=== PATIENT | female | born 1995 | race Native Hawaiian/Other Pacific Islander ===

== ENCOUNTER 2025-01-15 13:47 | Emergency (ER) | payer OTHER, SELFPAY ==
[2025-01-15] VITALS (9 sets, daily range): BP systolic 112–126; BP diastolic 65–77; PULSE 78–98; RESP 16; TEMP 36.4; O2SAT 95–100
--- NOTE | 2025-01-15 17:25 | ED.NAVMDI ---
HPI - Nausea/Vomiting/Diarrhea <Kayla Sosa PA-C - Last Filed: 01/15/25 19:31> General Chief complaint: Nausea/Vomiting/Diarrhea Stated complaint: 13 weeks Throwing up, headache Time Seen by Provider: 01/15/25 14:58 Source: patient Mode of arrival: Ambulatory History of Present Illness HPI Narrative: Ms. Cox is a pleasant 29-year-old female, currently 13 weeks who presents to the emergency department for nausea, vomiting, headache since last night. Patient states around 1:00 a.m. she started feeling nauseous and had a frontal forehead headache associated with vomiting whenever she tried to eat. She is not experiencing any abdominal pain. She actually feels much better now than she did last night. She called her OBGYN in [place] and they could not see her today and recommended she come to the ER. She has already had ultrasound and confirmed this . She denies any abdominal pain, diarrhea, constipation, dysuria, hematuria, vaginal discharge or vaginal bleeding. She denies fevers, chills. She is having normal bowel movements. Two prior pregnancies were vaginal, uncomplicated, and she has a 3-year-old and 1-year-old. Related Data Previous Rx's ?Medication ?Instructions ?Recorded promethazine 12.5 mg tablet 12.5 mg PO Q4-6H PRN nausea and 01/15/25 vomiting #20 tabs Allergies Allergy/AdvReac Type Severity Reaction Status Date / Time No Known Drug Allergies Allergy Verified 01/15/25 14:19 Review of Systems <Kayla Sosa PA-C - Last Filed: 01/15/25 19:31> Review of Systems ROS Unobtainable: All systems reviewed & are unremarkable except as noted in HPI and below Patient History <Kayla Sosa PA-C - Last Filed: 01/15/25 19:31> Social History Smoking Status: Never smoker Smoking Status: Never smoker Exam <Kayla Sosa PA-C - Last Filed: 01/15/25 19:31> Narrative Exam Narrative: GENERAL: 29 year old patient appears stated age. Well-developed patient, in no acute distress. HEAD: Atraumatic. Normocephalic. EYES: No scleral icterus. No injection or drainage. NECK: Trachea midline. Cervical ROM intact. CARDIOVASCULAR: Regular rate and rhythm. RESPIRATORY: ?Nonlabored respirations. ?Speaking in clear, full sentences. ?Clear to auscultation. Breath sounds equal bilaterally. No wheezes, rales, or rhonchi. ? GASTROINTESTINAL: Abdomen soft, non-tender, nondistended. BS present. EXTREMITIES: No LE edema. BACK: No CVA tenderness. NEURO: AOx3. ?Clear speech. ?Moves all 4 extremities appropriately. SKIN: No rash or erythema of visible areas Initial Vital Signs Initial Vital Signs: Vital Signs Temperature 97.6 F 01/15/25 14:19 Pulse Rate 88 01/15/25 14:19 Respiratory Rate 16 01/15/25 14:19 Blood Pressure 126/77 01/15/25 14:19 Pulse Oximetry 98 01/15/25 14:19 Oxygen Delivery Method Room Air 01/15/25 14:19 <Arline Painter DO - Last Filed: 01/25/25 07:41> Initial Vital Signs Initial Vital Signs: Vital Signs Temperature 97.6 F 01/15/25 14:19 Pulse Rate 88 01/15/25 14:19 Respiratory Rate 16 01/15/25 14:19 Blood Pressure 126/77 01/15/25 14:19 Pulse Oximetry 98 01/15/25 14:19 Oxygen Delivery Method Room Air 01/15/25 14:19 Course <Kayla Sosa PA-C - Last Filed: 01/15/25 19:31> Orders Ordered: Discontinued Medications Diphenhydramine HCl (Diphenhydramine 50 Mg/Ml Vial) 25 mg IV NOW ONE Stop: 01/15/25 14:59 Last Admin: 01/15/25 17:35 Dose: 25 mg Documented By: KODY Sodium Chloride (Normal Saline 0.9%) 1,000 mls @ 1,000 mls/hr IV BOLUS ONE Stop: 01/15/25 15:57 Last Infusion: 01/15/25 19:20 Dose: Infused Documented By: Admin: 01/15/25 17:34 Dose: 1,000 mls/hr Documented By: KODY Ceftriaxone Sodium 1,000 mg/ (Sodium Chloride) 100 mls @ 200 mls/hr IV NOW ONE Stop: 01/15/25 18:43 Last Infusion: 01/15/25 19:45 Dose: Infused Documented By: Admin: 01/15/25 19:14 Dose: 200 mls/hr Documented By: KODY Magnesium Oxide (Magnesium Oxide 400 Mg Tablet) 400 mg PO DAILY ONE Stop: 01/15/25 18:05 Last Admin: 01/15/25 18:20 Dose: 400 mg Documented By: JAY Metoclopramide HCl (Metoclopramide 10 Mg/2 Ml Inj) 5 mg IV NOW ONE Stop: 01/15/25 14:59 Last Admin: 01/15/25 17:35 Dose: 5 mg Documented By: KODY Metronidazole (Metronidazole 500 Mg Tablet) 500 mg PO NOW ONE Stop: 01/15/25 18:43 Last Admin: 01/15/25 19:15 Dose: 500 mg Documented By: KODY Ondansetron HCl (Ondansetron 4 Mg/2 Ml Inj) 4 mg IV NOW PRN PRN Reason: Nausea And Vomiting Ondansetron HCl (Ondansetron 4 Mg Odt) 4 mg PO NOW PRN PRN Reason: Nausea And Vomiting Vital Signs Vital signs: Vital Signs - 8 hr 01/15/25 14:19 01/15/25 15:59 01/15/25 15:59 Temperature 97.6 F Pulse Rate 88 81 Respiratory Rate 16 Blood Pressure 126/77 120/73 Pulse Oximetry 98 99 Oxygen Delivery Method Room Air 01/15/25 16:00 01/15/25 16:01 01/15/25 16:01 Temperature Pulse Rate 79 84 Respiratory Rate Blood Pressure 113/68 Pulse Oximetry 100 99 Oxygen Delivery Method 01/15/25 16:30 01/15/25 17:00 01/15/25 19:18 Temperature Pulse Rate 98 H 83 Respiratory Rate Blood Pressure Pulse Oximetry 98 100 95 Oxygen Delivery Method 01/15/25 19:20 01/15/25 19:20 Temperature Pulse Rate 83 Respiratory Rate Blood Pressure 115/65 Pulse Oximetry 99 Oxygen Delivery Method <Arline Painter DO - Last Filed: 01/25/25 07:41> Orders Ordered: Discontinued Medications Diphenhydramine HCl (Diphenhydramine 50 Mg/Ml Vial) 25 mg IV NOW ONE Stop: 01/15/25 14:59 Last Admin: 01/15/25 17:35 Dose: 25 mg Documented By: KODY Sodium Chloride (Normal Saline 0.9%) 1,000 mls @ 1,000 mls/hr IV BOLUS ONE Stop: 01/15/25 15:57 Last Infusion: 01/15/25 19:20 Dose: Infused Documented By: Admin: 01/15/25 17:34 Dose: 1,000 mls/hr Documented By: KODY Ceftriaxone Sodium 1,000 mg/ (Sodium Chloride) 100 mls @ 200 mls/hr IV NOW ONE Stop: 01/15/25 18:43 Last Infusion: 01/15/25 19:45 Dose: Infused Documented By: Admin: 01/15/25 19:14 Dose: 200 mls/hr Documented By: KODY Magnesium Oxide (Magnesium Oxide 400 Mg Tablet) 400 mg PO DAILY ONE Stop: 01/15/25 18:05 Last Admin: 01/15/25 18:20 Dose: 400 mg Documented By: JAY Metoclopramide HCl (Metoclopramide 10 Mg/2 Ml Inj) 5 mg IV NOW ONE Stop: 01/15/25 14:59 Last Admin: 01/15/25 17:35 Dose: 5 mg Documented By: KODY Metronidazole (Metronidazole 500 Mg Tablet) 500 mg PO NOW ONE Stop: 01/15/25 18:43 Last Admin: 01/15/25 19:15 Dose: 500 mg Documented By: KODY Ondansetron HCl (Ondansetron 4 Mg/2 Ml Inj) 4 mg IV NOW PRN PRN Reason: Nausea And Vomiting Ondansetron HCl (Ondansetron 4 Mg Odt) 4 mg PO NOW PRN PRN Reason: Nausea And Vomiting Vital Signs Vital signs: Vital Signs - 8 hr 01/15/25 14:19 01/15/25 15:59 01/15/25 15:59 Temperature 97.6 F Pulse Rate 88 81 Respiratory Rate 16 Blood Pressure 126/77 120/73 Pulse Oximetry 98 99 Oxygen Delivery Method Room Air 01/15/25 16:00 01/15/25 16:01 01/15/25 16:01 Temperature Pulse Rate 79 84 Respiratory Rate Blood Pressure 113/68 Pulse Oximetry 100 99 Oxygen Delivery Method 01/15/25 16:30 01/15/25 17:00 01/15/25 19:18 Temperature Pulse Rate 98 H 83 Respiratory Rate Blood Pressure Pulse Oximetry 98 100 95 Oxygen Delivery Method 01/15/25 19:20 01/15/25 19:20 Temperature Pulse Rate 83 Respiratory Rate Blood Pressure 115/65 Pulse Oximetry 99 Oxygen Delivery Method MDM - Nausea/Vomiting/Diarrhea <Kayla Sosa PA-C - Last Filed: 01/15/25 19:31> Medical Records Attestation: I reviewed the patient's medical records. Lab Data 01/15/25 17:28 01/15/25 17:28 Labs: Lab Results 01/15/25 01/15/25 Range/Units 17:28 18:00 WBC 13.2 H (4.5-11.0) X10^3/uL RBC 4.70 (4.0-5.2) X10^6/uL Hgb 13.5 (12.0-16.0) g/dL Hct 38.4 (36-46) % MCV 81.8 (80-100) fL MCH 28.7 (26-34) PG MCHC 35.0 (30-36) % RDW 12.9 (11.6-14.8) % Plt Count 337 (150-400) X10^3/uL Neut % (Auto) 82.8 H (50-75) % Lymph % (Auto) 12.6 L (25-40) % [place] % (Auto) 3.9 (3-14) % Eos % (Auto) 0.3 L (2-4) % Baso % (Auto) 0.4 (0-2) % Neut # (Auto) 75878 H (4578-4741) /uL Lymph # (Auto) 1700 (4012-2702) /uL [place] # (Auto) 500 (0-900) /uL Eos # (Auto) 0 (0-450) /uL Baso # (Auto) 100 (0-100) /uL Sodium 132 L (137-145) mmol/L Potassium 4.0 (3.4-5.1) mmol/L Chloride 102 (98-107) mmol/L Carbon Dioxide 22 (22-32) mmol/L BUN 9 (7-17) mg/dL Creatinine 0.58 (0.52-1.04) mg/dL Estimated GFR > 60 (>60) mL/min BUN/Creatinine Ratio 15.5 (6-22) Glucose 98 (70-99) mg/dL Calcium 9.4 (8.4-10.2) mg/dL Magnesium 1.4 L (1.6-2.3) mg/dL Total Bilirubin 0.4 (0.2-1.3) mg/dL AST 22 (14-36) IU/L ALT 16 (<35) IU/L Alkaline Phosphatase 56 (38-126) U/L Total Protein 8.3 H (6.3-8.2) g/dL Albumin 4.2 (3.5-5.0) g/dL Globulin 4.1 (1.7-4.1) g/dL Albumin/Globulin Ratio 1.0 (1.0-2.8) Lipase 212 (23-300) U/L Urine RBC 0-1/hpf (0-5/HPF) Urine WBC 1-5/hpf (0-5/HPF) Ur Squamous Epith Cells 5-10 /hpf H (0-5/HPF) Urine Bacteria Many (>30) H (None) Urine Mucus 1+ H (Negative) Urine Trichomonas 1-5/hpf H (None Seen) Urine Yeast 0-1/hpf (None) Ur Culture Indicated? Specimen cultured Vol Urine Centrifuged 10ml (spun) Point of Care Testing Test Results Positive Urine Dip Bedside Urine Glucose Negative Bedside Urine Bilirubin - Negative Bedside Urine Ketone +++ 80 Urine Specific [place] 1.020 Bedside Urine Occult Blood +/- Bedside Urine pH 6.0 Bedside Urine Protein +/- 15 Bedside Urine Urobilinogen - Negative Bedside Urine Nitrite - Negative Bedside Urine Leukocytes +++ 500 Esterase MDM Narrative Medical decision making narrative: 29-year-old female, currently 13 weeks who presents to the emergency department for nausea, vomiting, headache since last night. Differential diagnosis includes but isn't limited to gastroenteritis, gastritis, hyperemesis, dehydration, electrolyte abnormality, tension headache, migraine headache, etc. On exam patient is in no acute distress, nontoxic-appearing, all vital signs within normal limits. Abdomen is soft and nontender, lungs are clear to auscultation bilaterally. Symptoms have improved significantly, because she is we will treat with Reglan, Benadryl, IV fluids. Patient feeling much better after ED treatment, tolerating p.o. Labs reveal elevated WBC count 13.2, normal hemoglobin 13.5 hematocrit 38.4. Sodium slightly low at 132, normal potassium 4.0, BUN 9 creatinine 0.58. Glucose 98. Slightly decreased magnesium 1.4. Normal LFTs and lipase. Urinalysis does reveal urine Trichomonas, many bacteria. Patient's magnesium was addressed using 400 mg Mag Ox. We will treat with metronidazole 500 mg b.i.d. x7 days for trichomoniasis and . We will also treat with cephalexin 500 mg q.i.d. x7 days for UTI in . Discussed with patient that she will need to have any sexual partners tested and treated for Trichomonas as well I recommend that she has full STD testing with her OBGYN. First dose of metronidazole and 1 g ceftriaxone ordered in the ED. ER return precautions and OBGYN follow up discussed, patient verbalized understanding of all information is agreeable plan, she is stable for discharge home. <Arline Painter DO - Last Filed: 01/25/25 07:41> Lab Data Labs: Lab Results 01/15/25 01/15/25 Range/Units 17:28 18:00 WBC 13.2 H (4.5-11.0) X10^3/uL RBC 4.70 (4.0-5.2) X10^6/uL Hgb 13.5 (12.0-16.0) g/dL Hct 38.4 (36-46) % MCV 81.8 (80-100) fL MCH 28.7 (26-34) PG MCHC 35.0 (30-36) % RDW 12.9 (11.6-14.8) % Plt Count 337 (150-400) X10^3/uL Neut % (Auto) 82.8 H (50-75) % Lymph % (Auto) 12.6 L (25-40) % [place] % (Auto) 3.9 (3-14) % Eos % (Auto) 0.3 L (2-4) % Baso % (Auto) 0.4 (0-2) % Neut # (Auto) 69600 H (9663-0660) /uL Lymph # (Auto) 1700 (0084-9377) /uL [place] # (Auto) 500 (0-900) /uL Eos # (Auto) 0 (0-450) /uL Baso # (Auto) 100 (0-100) /uL Sodium 132 L (137-145) mmol/L Potassium 4.0 (3.4-5.1) mmol/L Chloride 102 (98-107) mmol/L Carbon Dioxide 22 (22-32) mmol/L BUN 9 (7-17) mg/dL Creatinine 0.58 (0.52-1.04) mg/dL Estimated GFR > 60 (>60) mL/min BUN/Creatinine Ratio 15.5 (6-22) Glucose 98 (70-99) mg/dL Calcium 9.4 (8.4-10.2) mg/dL Magnesium 1.4 L (1.6-2.3) mg/dL Total Bilirubin 0.4 (0.2-1.3) mg/dL AST 22 (14-36) IU/L ALT 16 (<35) IU/L Alkaline Phosphatase 56 (38-126) U/L Total Protein 8.3 H (6.3-8.2) g/dL Albumin 4.2 (3.5-5.0) g/dL Globulin 4.1 (1.7-4.1) g/dL Albumin/Globulin Ratio 1.0 (1.0-2.8) Lipase 212 (23-300) U/L Urine RBC 0-1/hpf (0-5/HPF) Urine WBC 1-5/hpf (0-5/HPF) Ur Squamous Epith Cells 5-10 /hpf H (0-5/HPF) Urine Bacteria Many (>30) H (None) Urine Mucus 1+ H (Negative) Urine Trichomonas 1-5/hpf H (None Seen) Urine Yeast 0-1/hpf (None) Ur Culture Indicated? Specimen cultured Vol Urine Centrifuged 10ml (spun) Point of Care Testing Test Results Positive Urine Dip Bedside Urine Glucose Negative Bedside Urine Bilirubin - Negative Bedside Urine Ketone +++ 80 Urine Specific [place] 1.020 Bedside Urine Occult Blood +/- Bedside Urine pH 6.0 Bedside Urine Protein +/- 15 Bedside Urine Urobilinogen - Negative Bedside Urine Nitrite - Negative Bedside Urine Leukocytes +++ 500 Esterase Discharge Plan Departure Patient Disposition: Home Clinical Impression: Nausea and vomiting during , Trichomonas infection UTI (urinary tract infection) Qualifiers: Urinary tract infection type: acute cystitis Hematuria presence: without hematuria Qualified Code(s): N30.00 - Acute cystitis without hematuria Instructions: DI for Urinary Tract Infection (UTI), DI for Vomiting -- Adult, DI for Trichomoniasis Activity Restrictions/Additional Instructions: Dear Ms. Cox, Thank you for coming to the emergency department. Today you were evaluated for headache, nausea, vomiting in . I am very glad that you are feeling better after your emergency room treatment. Your workup today did reveal a urinary tract infection in addition to Trichomonas in your urine which is a sexually transmitted infection. You need to complete both antibiotics that are prescribed. Please also have any sexual partners tested and treated as well before resuming sexual activity. Your lab work revealed a slightly low magnesium. Please make sure to hydrate, drink electrolyte beverages such as Pedialyte, and increase foods rich in magnesium such as dairy, nuts and seeds, avocado, leafy greens, etc. Please call your OBGYN in the morning and schedule a follow up appointment for STD testing and further management. Please return to the ER immediately if you develop severe pain, abdominal pain, vaginal bleeding, fevers or any other concerns. You have been prescribed an anti-nausea medicine called promethazine. You may use this if needed for breakthrough nausea and vomiting. Please follow up with your primary care doctor within the next 2-3 days for ER follow-up. (If you do not have a PCP you can call [phone]. ?to schedule an appointment with an [facility] Primary Care Provider) IF YOU DEVELOP ANY NEW OR WORSENING SYMPTOMS, RETURN TO THE ER! Please read the attached instructions, they highlight more specific treatments and interventions for you at home. Thank you for letting me participate in your care, Kayla Sosa PA-C Prescriptions: New promethazine 12.5 mg tablet 12.5 mg PO Q4-6H PRN (Reason: nausea and vomiting) Qty: 20 0RF Stand Alone Forms: Patient Portal/API, Work Release Note ED Sign-out <Arline Painter, DO - Last Filed: 01/25/25 07:41> Cosign ED Attending Itz Attestation: I was available for consultation.
[2025-01-15] MEDS: SODIUM CHLORIDE 0.9% 1,000 ML 1000 ML IV (17:34)
[2025-01-15 17:35] LABS: Add Manual Diff / Slide Review NO; Hematocrit 38.4 % (36-46); Hemoglobin 13.5 g/dL (12.0-16.0); Lymphocytes Absolute Auto 1700 /uL (1100-4500); Mean Corpuscular HGB Conc 35.0 % (30-36); Mean Corpuscular Hemoglobin 28.7 PG (26-34); Mean Corpuscular Volume 81.8 fL (80-100); Platelet Count 337 X10^3/uL (150-400)
[2025-01-15] MEDS: diphenhydrAMINE 50 MG/ML VIAL 25 MG IV (17:35)
[2025-01-15] MEDS: METOCLOPRAMIDE 10 MG/2 ML INJ 5 MG IV (17:35)
[2025-01-15 17:48] LABS: Alanine Aminotransferase 16 IU/L (<35); Albumin 4.2 g/dL (3.5-5.0); Albumin Globulin Ratio 1.0 (1.0-2.8); Alkaline Phosphatase 56 U/L (38-126); Blood Urea Nitrogen 9 mg/dL (7-17); Calcium 9.4 mg/dL (8.4-10.2); Carbon Dioxide 22 mmol/L (22-32); Chloride 102 mmol/L (98-107); Estimated Glomerular Filt Rate > 60 mL/min (>60); Globulin 4.1 g/dL (1.7-4.1); Glucose 98 mg/dL (70-99); HEMOLYSIS < 15 (0-50); Lipase 212 U/L (23-300); Magnesium 1.4 mg/dL (1.6-2.3); Potassium 4.0 mmol/L (3.4-5.1); Sodium 132 mmol/L (137-145); Total Protein 8.3 g/dL (6.3-8.2)
[2025-01-15] MEDS: MAGNESIUM OXIDE 400 MG TABLET PO (18:20)
[2025-01-15 18:33] LABS: Culture Indicated Urine Specimen Cultured
== END 2025-01-15 19:58 | disposition home or self-care (01) ==
PROVIDERS: Emergency Provider Physician Assistant
DX: O23.11 Infections of bladder in pregnancy, first trimester (principal); O98.311 Other infections with a predominantly sexual mode of transmission complicating pregnancy, first trimester; A59.03 Trichomonal cystitis and urethritis; N39.0 Urinary tract infection, site not specified; O21.9 Vomiting of pregnancy, unspecified; Z3A.13 13 weeks gestation of pregnancy
CPT/HCPCS: 80053; 81003; 81015; 81025; 83690; 83735; 85025; 87077; 87086; 87147; 96361; 96365; 96375; 99284; J0696; J1200; J2765